=== PATIENT | female | born 1975 | race Caucasian/White ===

== ENCOUNTER 2018-02-10 16:20 | Inpatient (IN) | payer OTHER ==
[~2018-02-10] VITALS: Ht 157.5 cm; Wt 64.0 kg
[~2018-02-10 16:20] MED LIST: ATIVAN1 M1 PO; ATORVASTATIN CA10 M1 PO; DEPO-PROVE150 MG/1 M IM; EPIPEN 2-P0.3 MG/0.3 IM; LEVOTHYROXINE25 MCG PO; PROAIR HFA8.5 GM INH; VITAMIN B-121000 MC3 PO; VITAMIN D-32000 UNIT PO
[2018-02-10 16:44] LABS: ABSOLUTE BASOPHIL COUNT 0 /CUMM (0.0-0.2); ABSOLUTE EOSINOPHIL COUNT 0 /CUMM (0.0-0.7); ABSOLUTE GRANULOCYTE CT 5.1 /CUMM (1.4-6.5); ABSOLUTE LYMPH COUNT 1.8 /CUMM (1.2-3.4); ABSOLUTE MONOCYTE COUNT 0.5 /CUMM (0.10-0.60); BASOPHIL % 0.4 % (0.0-2.0); EOSINOPHIL % 0.1 % (0-5); GRANULOCYTE % 68.4 % (42.2-75.2); HEMATOCRIT 45.7 % (37-47); MEAN CORPUSCULAR HGB 29.6 PG (27.0-31.0); MEAN CORPUSCULAR HGB CONC 32.7 G/DL (33.0-37.0); MEAN CORPUSCULAR VOLUME 90.5 FL (81.0-99.0); MEAN PLATELET VOLUME 8.7 FL (7.4-10.4); PLATELET COUNT 230 /CUMM (130-400); RBC DISTRIBUTION WIDTH 13.5 % (11.5-14.5); RED BLOOD CELL CT 5.05 /CUMM (4.20-5.40); WHITE BLOOD CELL COUNT 7.5 /CUMM (4.8-10.8)
--- NOTE | 2018-02-10 16:45 | ED GENERAL ADULT ---
See Addendum History of Present Illness General Chief Complaint: Psychiatric Related Complaint Stated Complaint: BIBA +SI AND NEAR SYNCOPE/TACHYCARDIA Source: patient Exam Limitations: no limitations Vital Signs & Intake/Output Vital Signs & Intake/Output Vital Signs Date Time Temp Pulse Resp B/P B/P Pulse O2 O2 Flow FiO2 Mean Ox Delivery Rate 02/10 1754 98 Room Air 02/10 1622 99 18 155/91 98 Room Air Allergies Coded Allergies: gluten (INTOLERANCE 05/03/16) venom-honey bee (ANAPHYLAXIS 02/10/18) Reconcile Medications Albuterol Sulfate (Proair Hfa) 90 MCG HFA.AER.AD 2 PUF INH Q4-6 PRN PRN SOB Cyanocobalamin (Vitamin B-12) (Unknown Strength) TABLET (Unknown Dose) PO DAILY SUPPLEMENT (Reported) Epinephrine (Epipen 2-Cyrus) 0.3 MG/0.3 ML AUTO.INJCT 0.3 MG IM AD PRN ALLERGIC REACTION (Reported) Medroxyprogesterone Acetate (Depo-Provera) 150 MG/ML VIAL 150 MG IM Q3M ENDOMETRIOSIS (Reported) Triage Note: PT TO ER BIBA S/P SYNCOPAL EPISDOE AT HOME LASTING APPROX 4 MINS PER PT. PT STATES SHE HAS BEEN HAVING SIMILAR EPISODES STARTING WITH CHEST PAIN, SOB AND TACHYCARDIA X 3 MONTHS, HAS NOT BEEN SEEN BY MEDICAL PROVIDER FOR SAME. LAST EPISODE 2 WEEKS PRIOR. STATES NOTHING BRINGS ON EPISODES. PT IS ON PEER SECONDARY TO MAKING SI STATEMENT TO AND SISTER, PT STATES SHE SAID, "I AM DONE, I WANT TO BE WITH MY MOM". PROMPTING FAMILY TO CALL 911. PT DENIES SI/HI. DENIES ETOH/DRUG USE. PT ALERT, CALM AND COOPERATIVE. DENIES CURRENT C/P, SOB OR NAUSEA Triage Nurses Notes Reviewed? yes : No Patient currently breastfeeds: No HPI: 42-year-old female comes in for suicidal ideations. The patient was fighting with her and texted statements stating that she had thoughts of ending her life. She was cleaning her room when she had a syncopal episode. The patient reports that this is her third syncopal episode in the last 1 year. She is now being worked up for this. She denies any preceding symptoms. The patient reports that other syncopal episodes have not been related to emotional distress. She denies physical pain or discomfort. Past History Travel History Traveled to [place] past 21 day No Medical History Any Pertinent Medical History? 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 No Review of Systems Review of Systems Constitutional: Denies: chills, diaphoresis, fever. EENTM: Denies: blurred vision, double vision, visual changes. Respiratory: Denies: cough, hemoptysis, orthopnea, short of breath. Cardiovascular: Denies: chest pain, edema, orthopena. GI: Denies: abdominal pain, bloating, constipation. Musculoskeletal: Denies: back pain, gout, joint pain. Skin: Denies: cysts, change in skin color, change in hair/nails. Neurological/Psychological: Denies: anxiety, ataxia, cognitive dysfunction, confusion. Hematologic/Endocrine: Denies: bruising, bleeding, polyuria. Physical Exam Physical Exam General Appearance: well developed/nourished, no apparent distress, alert Head: atraumatic, normal appearance, active bleeding Eyes: Bilateral: PERRL, EOMI. Ears, Nose, Throat: normal pharynx, normal ENT inspection Neck: normal inspection, supple, full range of motion Respiratory: normal breath sounds, chest non-tender, no respiratory distress Cardiovascular: regular rate/rhythm, edema, gallop Gastrointestinal: normal bowel sounds, soft, non-tender Back: normal inspection, normal range of motion Neurologic/Psych: no motor/sensory deficits, awake, alert, oriented x 3, normal gait, normal mood/affect Skin: intact, normal color, warm/dry Core Measures ACS in differential dx? No CVA/TIA Diagnosis: No Sepsis Present: No Sepsis Focused Exam Completed? No Progress Differential Diagnoses . Plan of Care: Orders Procedure Date/time Status Add-on Test (ER Only) 02/10 1835 Active Add-on Test (ER Only) 02/10 1834 Active Continuous Observation Monitor 02/10 1732 Active ED CRISIS PSYCH CONSULT 02/10 1732 Active Add-on Test (ER Only) 02/10 1707 Active ACETOMINOPHEN 02/10 1631 Complete SALICYLATE 02/10 1631 Complete ETHANOL 02/10 1631 Complete D-DIMER 02/10 1631 Complete URINE 02/10 1628 Complete URINE DRUG SCREEN FOR ER ONLY 02/10 1628 Complete TROPONIN LEVEL 02/10 1628 Complete COMPREHENSIVE METABOLIC PANEL 02/10 162 Complete CBC WITHOUT DIFFERENTIAL 02/10 162 Complete EKG 02/10 162 Active Laboratory Tests 02/10/18 1651: Urine Opiates Screen < 100, Methadone Screen < 40, Barbiturate Screen < 60, Ur Phencyclidine Scrn < 6.00, Amphetamines Screen 346, U Benzodiazepines Scrn < 85, Urine Cocaine Screen < 50, Urine Cannabis Screen < 5.00 02/10/18 1650: Urine Test NEGATIVE 02/10/18 163: Anion Gap 12, Estimated GFR > 60, BUN/Creatinine Ratio 11.4, Glucose 127 H, Calcium 9.6, Total Bilirubin 0.5, AST 15, ALT 28, Alkaline Phosphatase 60, Troponin I < 0.01, Total Protein 7.0, Albumin 4.3, Globulin 2.7, Albumin/ Globulin Ratio 1.6, D-Dimer High Sensitivty < 200, CBC w Diff NO MAN DIFF REQ, RBC 5.05, MCV 90.5, MCH 29.6, MCHC 32.7 L, RDW 13.5, MPV 8.7, Gran % 68.4, Lymphocytes % 24.5, Monocytes % 6.6, Eosinophils % 0.1, Basophils % 0.4, Absolute Granulocytes 5.1, Absolute Lymphocytes 1.8, Absolute Monocytes 0.5, Absolute Eosinophils 0, Absolute Basophils 0, Salicylates < 1.0, Acetaminophen < 10.0 L, Serum Alcohol < 10.0 Initial ED EKG: see below Hand-Off Endorsed To: Janet MONTES,Niranjan Mata Comments: Sinus, rate of 92. Normal axis. Normal intervals. No acute ST-T changes. Compared to the EKG from May 03, 2016: No significant change. 1937 patient is in no distress. She is awake alert and oriented. We will do medical evaluation have crisis see the patient for the suicidal statements she made. Currently she denies being suicidal. 1849 crisis is going to hold the patient overnight. Pending labs. Plan will be signed out to the night physician. Departure Departure Time of Disposition: 1921 Disposition: STILL A PATIENT Condition: Stable Clinical Impression Primary Impression: Syncope Referrals: Mayco MONTES,Emely (PCP/Family) Meng Vicente MD Additional Instructions: Return for dizziness lightheadedness or worsening symptoms. Do not drive a car and take syncope precautions until you get cleared by her primary care doctor and aluminizer. Departure Forms: Customer Survey General Discharge Information Critical Care Note Critical Care Note Critical Care Time: non-applicable
--- NOTE | 2018-02-10 16:50 | ED PSYCHIATRIC COMPLAINT ---
History of Present Illness General Chief Complaint: Psychiatric Related Complaint Stated Complaint: BIBA +SI AND NEAR SYNCOPE/TACHYCARDIA Source: patient, police Exam Limitations: no limitations Triage Note: PT TO ER BIBA S/P SYNCOPAL EPISDOE AT HOME LASTING APPROX 4 MINS PER PT. PT STATES SHE HAS BEEN HAVING SIMILAR EPISODES STARTING WITH CHEST PAIN, SOB AND TACHYCARDIA X 3 MONTHS, HAS NOT BEEN SEEN BY MEDICAL PROVIDER FOR SAME. LAST EPISODE 2 WEEKS PRIOR. STATES NOTHING BRINGS ON EPISODES. PT IS ON PEER SECONDARY TO MAKING SI STATEMENT TO AND SISTER, PT STATES SHE SAID, "I AM DONE, I WANT TO BE WITH MY MOM". PROMPTING FAMILY TO CALL 911. PT DENIES SI/HI. DENIES ETOH/DRUG USE. PT ALERT, CALM AND COOPERATIVE. DENIES CURRENT C/P, SOB OR NAUSEA Onset: Gradual Duration: day(s): Timing: recent history : No Patient currently breastfeeds: No HPI: 42 year female presents to the Emergency Department for episodes of syncope secondary to making a suicidal statement (Nelida MONTES,[facility]) Vital Signs & Intake/Output Vital Signs & Intake/Output Vital Signs Date Time Temp Pulse Resp B/P B/P Pulse O2 O2 Flow FiO2 Mean Ox Delivery Rate 02/12 0739 98.2 80 122/74 02/11 1954 98.6 85 138/82 02/11 1507 99.2 84 131/88 02/11 1304 98.2 84 16 129/77 99 Room Air 02/11 1252 Room Air 02/11 1035 97.5 87 20 142/83 98 Room Air ED Intake and Output 02/12 0000 02/11 1200 Intake Total Output Total Balance Patient 141 lb Weight Allergies Coded Allergies: gluten (INTOLERANCE 05/03/16) venom-honey bee (ANAPHYLAXIS 02/10/18) Reconcile Medications Albuterol Sulfate (Proair Hfa) 90 MCG HFA.AER.AD 2 PUF INH Q4-6 PRN PRN SOB Cyanocobalamin (Vitamin B-12) (Unknown Strength) TABLET (Unknown Dose) PO DAILY SUPPLEMENT (Reported) Epinephrine (Epipen 2-Cyrus) 0.3 MG/0.3 ML AUTO.INJCT 0.3 MG IM AD PRN ALLERGIC REACTION (Reported) Medroxyprogesterone Acetate (Depo-Provera) 150 MG/ML VIAL 150 MG IM Q3M ENDOMETRIOSIS (Reported) Triage Nurses Notes Reviewed? 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 see below for history Family History Hx Contributory? No (Niranjan Gonzales MD) Review of Systems Review of Systems Constitutional: Denies: see HPI. (Niranjan Gonzales MD) Physical Exam Physical Exam General Appearance: SEE DR. SMALL'S EXAM Neurological/Psychiatric: PER DR. SMALL SAD PERSONS SAD PERSONS Response Value Depression/Hopelessness? yes 2 Single//? yes 1 Organized/Serious Attempt yes 2 Social Support? has no support 1 Total 6 SAD PERSONS Done? yes (Janet MONTES,Niranjan Mata) Progress Differential Diagnosis: DEPRESSION VS OTHER. Plan of Care: Orders Procedure Date/time Status Regular Diet 02/12 B Active THYROID STIMULATING HORMONE 02/12 0600 Active LIPID PANEL 02/12 0600 Active GLYCOSYLATED HGB 02/12 0600 Active Regular Diet 02/11 D Complete Patient Data - inpatient psych 02/11 1629 Active Admit to inpatient psych 02/11 1629 Active Vital Signs 02/11 1504 Active Inpt Psych Teach/Educate 02/11 1504 Active Nutritional Intake, Monitor 02/11 1504 Complete Inpt Psych Auricular Acupunctu 02/11 1504 Active Admit to inpatient psych 02/11 1144 Active ED Holding Orders 02/11 1118 Active Code Status 02/11 1118 Active Nursing Misc 02/11 UNK Active Activity/Ambulation 02/11 UNK Active Intake & Output 02/10 1934 Complete Current Medications Sig/Madelyn Start time Last Medication Dose Stop Time Status Admin Ibuprofen 400 MG Q6-PRN PRN 02/12 1000 AC (Motrin UDC) Trimethoprim/ 20 ML 0800,2000 02/11 2000 AC 02/12 Sulfamethoxazole 0820 (Bactrim Susp) Acetaminophen 320 MG Q6-PRN PRN 02/11 1645 AC (Children's Acetaminophen) Diphenhydramine HCl 25 MG Q6P PRN 02/11 164 AC (Benadryl) Haloperidol 5 MG Q6P PRN 02/11 164 CAN (Haldol) Hydroxyzine HCl 25 MG Q6PRN PRN 02/11 164 CAN (Atarax) Nicotine 2 MG Q2 HRS NEEDED PRN 02/11 164 AC (Nicotine) Olanzapine 5 MG Q6-PRN PRN 02/11 164 AC (ZYDIS (Orally disintegrating tabs)) Trazodone HCl 50 MG AT BEDTIME NEED.. 02/11 164 CAN (Desyrel) Trazodone HCl 50 MG AT BEDTIME NEED.. 02/11 164 AC (Desyrel) Potassium Chloride 20 MEQ ONCE ONE 02/11 1500 CAN (K-Dur) 02/11 1800 Laboratory Tests 02/12/18 0629: Hemoglobin A1c Pending, Triglycerides 113, Cholesterol 207 H, LDL Cholesterol, Calc 143 H, HDL Cholesterol 42, Cholesterol/HDL Ratio 5 H, TSH 4.010 02/11/18 1629: TSH Cancelled (Janet MONTES,Niranjan Mata) Departure Departure Condition: Stable Referrals: Emely Mao MD (PCP/Family) Departure Forms: Customer Survey General Discharge Information (Nelida MONTES,[facility]) Departure Disposition: STILL A PATIENT Clinical Impression Primary Impression: Depression Comments pt signed out to dr. Small, 02/11/18, 7am... crises eval in AM. (Janet MONTES,Niranjan Mata)
[2018-02-10] MEDS ORDERED: VITAMIN B-121000 MC3 PO (17:50)
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
[2018-02-11 15:07] VITALS: BP 131/88
[2018-02-11 19:54] VITALS: BP 138/82
--- NOTE | 2018-02-12 04:23 | History & Physical ---
General Information and [facility] MD Statement: I have seen and personally examined KURTIS COX and documented this H&P. The patient is a 42 year old F who presented with a patient stated chief complaint of [syncope]. Source of Information: patient Exam Limitations: no limitations History of Present Illness: This patient is a 43 y/o F PMHx Migraines and endometriosis came to the ED yesterday by ambulance after "passing out". Patient states she ran errands in the morning, had a mammogram in the afternoon, was in her normal state of health , then came home and got into a verbal argument with her boyfriend, and an argument with her sister through text message. After the argument, she went upstairs to clean her bathroom, and at around 3 pm she felt her heart race, saw spots, got cold sweats, chest pain, and passed out. She states the chest pain was mildly sharp, a 4/10 on the pain scale, and subsided after she regained consciousness. She states she was unconscious for a couple of minutes. She states that the only trigger she has noticed is after she takes a hot shower. She denies dizziness, headache, blurred vision, SOB, n/v, urinary incontinence. She reports that she has had 3 similar episodes in the past 3 months with the same symptoms, but has felt heart palpitations, numbness, and tingling in past episodes for over 7 years. Patient states each episode has been unwitnessed. Patient states she last saw her primary care physician 2 years ago and discontinued care after they did a full workup and couldnt find anything. They referred her to an brake coupler road freight, who she states also did a full work up for an autoimmune disease but did not have any results come back positive. Patient was BIBA on a police emergency evaluation request for a psych evaluation after making suicidal comments reported by her sister. During the argument with her sister, she made a statement that she is done and that she did not want to live anymore. Hospital course includes labwork showing potassium level of 3.3(L ), patient was treated with Potassium Chloride (KClor) in ED. EKG, troponins, D- dimer, utox all done in ED. Patient was at urgent care for a UTI, cx retrieved by ED. Patient starts Bactrim this evening. Patient admitted to [facility] at 4 pm this evening. Allergies/Medications Allergies: Coded Allergies: gluten (INTOLERANCE 05/03/16) venom-honey bee (ANAPHYLAXIS 02/10/18) Home Med list Albuterol Sulfate (Proair Hfa) 90 MCG HFA.AER.AD 2 PUF INH Q4-6 PRN PRN SOB Cyanocobalamin (Vitamin B-12) (Unknown Strength) TABLET (Unknown Dose) PO DAILY SUPPLEMENT (Reported) Epinephrine (Epipen 2-Cyrus) 0.3 MG/0.3 ML AUTO.INJCT 0.3 MG IM AD PRN ALLERGIC REACTION (Reported) Medroxyprogesterone Acetate (Depo-Provera) 150 MG/ML VIAL 150 MG IM Q3M ENDOMETRIOSIS (Reported) Past History Travel History Traveled to [place] past 21 day No Medical History Neurological: NONE EENT: NONE Cardiovascular: hyperlipidemia Respiratory: NONE Gastrointestinal: NONE Hepatic: NONE Renal: nephrolithiasis Musculoskeletal: NONE Psychiatric: NONE Endocrine: hypothyroidism Blood Disorders: NONE Cancer(s): NONE 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 Psychosocial History Where do you live? Home Who Do You Live With? 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 Exam & Diagnostic Data Last 24 Hrs of Vital Signs/I&O Vital Signs Date Time Temp Pulse Resp B/P B/P Pulse O2 O2 Flow FiO2 Mean Ox Delivery Rate 02/11 1954 98.6 85 138/82 02/11 1507 99.2 84 131/88 02/11 1304 98.2 84 16 129/77 99 Room Air 02/11 1252 Room Air 02/11 1035 97.5 87 20 142/83 98 Room Air 02/11 0852 98.3 74 20 124/73 99 Room Air 02/11 0633 98.6 63 16 112/58 98 Room Air 02/11 0501 Room Air Intake & Output 02/12 0800 02/12 0000 02/11 1600 Intake Total Output Total Balance Patient 141 lb Weight Physical Exam General Appearance Alert, Oriented X3, Cooperative, No Acute Distress Skin No Rashes HEENT Atraumatic, PERRLA, EOMI Neck Supple Lymphatic Axillary nl, Cervical nl Cardiovascular Regular Rate, Normal S1, Normal S2 Lungs Clear to Auscultation, Normal Air Movement Abdomen Normal Bowel Sounds, Soft, No Tenderness Neurological Normal Gait, Normal Speech Last 24 Hrs of Labs/Jose Luis: Laboratory Tests 02/11/18 1629: TSH Cancelled Assessment/Plan Assessment: Patient is a 43 year old female PMHx migraine and endometriosis BIBA on a PEER after an unwitnessed syncopal episode that occurred yesterday after getting into a verbal argument with her boyfriend and then her sister which included statements of suicidal ideation. Patient reports having 3 syncopal episodes in the past 3 months, and heart palpitations, numbness and tingling of her back and extremities for the past 7 years, with multiple workups by a PCP she no longer sees and an Arborer, Dr. Reardon, who she plans to follow up with, but reports no diagnosis after multiple work ups. This patient has prodromal symptoms including seeing spots, heart palpitations, lightheadedness, and syncope of a short duration, with no identifiable trigger. She has had outpatient treatment with no etiology of symptoms and lab work in the ED was not significant for cardiac events or dysrhythmias. Highest on my differential is that patient is having situational vasovagal syncope that is triggered by stressful situations. This patient is considered to be low risk given her negative history for structural heart disease, normal baseline EKG, and no history of injuries after these episodes. This patient can continue to be evaluated outpatient once she has completed her inpatient treatment in [facility]. Patient may continue taking Bactrim for her UTI. As Ranked By This Provider Problem List: 1. Syncope Core Measures/Misc (04/03) Acute Coronary Syndrome ACS Diagnosis: No Congestive Heart Failure Congestive Heart Failure Diagnosis No Cerebrovascular Accident CVA/TIA Diagnosis: No VTE (View Protocol) VTE Risk Factors No risk factors No Mechanical VTE Prophylaxis d/t LowRisk-No Interven Req'd No VTE Pharm Prophylaxis d/t LowRisk-No Interven Req'd Sepsis (View protocol) Sepsis Present: No If YES complete Sepsis Event Note If YES complete Sepsis Event Note Attending MD Review Statement Attending Statement Attending MD Statement: examined this patient
[2018-02-12 07:39] VITALS: BP 122/74
--- NOTE | 2018-02-12 09:50 | CPS PROVIDER INIT ASMT PSYCH ---
Psychiatric Admission Kerfer Machine Operator's Note Reviewed: Yes Patient Seen and Examined: Yes Identifying Information: young white woman Chief Complaint: I don't need to be here Reaction to Hospitalization: initially angry, now more agreeable History of Present Illness Onset of Illness: several weeks ago Circumstances Leading to Admission: sending text messages stating she was going to kill herself to and sister Problem(s) Justifying Need for Admission: suicidal threats, locking self in bedroom and not responding to family Other HPI: 42 year old woman without past psychiatric history, admitted yesterday after she was sending text messages stating she was going to kill herself and wanting to be with her mother to her after a recent breakup and her sister. She was evaluated on 02/10 with plan for re-evaluation on 02/11 with consideration for discharge. However, when precast worker and I saw her yesterday , she had been crying, hostile, unable to engage in any reasonable conversation due to insistence that she be discharged, was not interested in any outpatient referrals, discussion of events leading up to her ER hold, and not a reliable historian regarding her text messages and statements to her family. She had locked herself in her bedroom at home, and was not responsive (she states due to a syncopal episode) and family was banging on the door, concerned she was trying to kill herself, and therefore she was brought in on a peer. She has since reconstituted, appears to be more cooperative, able to have a coherent discussion, and able to discuss her stressors in a more meaningful manner. She still minimizes the breakup, isnt really processing it, and minimizing her behavior leading up to admission, but overall improving clinically. She declines need for medications, but states that she will consider outpatient therapy. She is focused on returning to work on Tuesday and returning to see her son. Past Psychiatric History Past Diagnosis(es)- if any: unspecified depressive disorder, adjustment disorder Past Precipitating Factors- if any: breakup - Include inpatient and outpatient treatment Treatment History: as a child, court mandated therapy after her parents History of Suicide Attempts or Gestures none Substance Abuse History: none, she states that there is substance use in her family and she prefers no to use any Allergies: Coded Allergies: venom-honey bee (ANAPHYLAXIS 02/10/18) Home Med List: see med rec - Include any medical condition(s) that may - impact the patient's recovery/remission Past Medical History: migraines, syncopal episodes, current UTI Past History Medical History Neurological: migraine EENT: NONE Cardiovascular: hyperlipidemia Respiratory: NONE Gastrointestinal: NONE Hepatic: NONE Renal: nephrolithiasis Musculoskeletal: NONE Psychiatric: NONE Endocrine: hypothyroidism Blood Disorders: NONE Cancer(s): NONE PROP CUTTER/Reproductive: endometriosis Isolation History: Standard Surgical History Surgical History: none Psychiatric Family/Social Hx Family History Psychiatric Illness: brother - bipolar disorder, ptsd, substance use Substance Use: brother with significant substance use Suicides: none however sister had noted that their mother and grandmother both had hx of suicide attempts Social History Living Situation: lives with her 17 year old son, moved out less than a month ago Significant Relationships (family/friends): just left less than a month ago Education: high school, has certificate in business billing Vocation/Occupation: works for [employer] Legal: none Healthly Behaviors Screening Tobacco Screening Tobacco Use from ED Docu: Quit >30 days ago - If tobacco counseling indicated - the following topics are required. - #1 Recognizing dangerous situations. - #2 Coping Skills. - #3 Basic information about quitting. Status of Tobacco Cessation Counseling: #1, #2 AND #3 Completed (vaping only ) Cessation Med Status Pt Refused Cessation Meds Alcohol Screening - ETOH screen POS if BAL >=80 or Audit-C>= M4/F3 Audit-C Score from Diag Assess: 0 Blood Alcohol Level: Laboratory Tests 02/10 1631 Toxicology Serum Alcohol (<10 MG/DL) < 10.0 Alcohol Use Screening Results: Neg per Audit C &/or BAL - If ETOH counseling indicated - the following topics are required. - #1 Express concern about the patient's - drinking at unhealthy levels, include informing - of national norms for moderate drinking: - men <= 14 drinks/week, max 4 drinks/occasion - women <= 7 drinks/week, max 3 drinks/occasion - #2 Providing feedback, including linking alcohol to - negative physical effects (liver injury, hypertension) - negative emotional effects (relationship problems and - depression) - negative occupational consequences (reduced work - performance) - #3 Advising the patient to abstain from alcohol or - to drink below national norms for moderate drinking - (as listed above). Status of ETOH Use Counseling: N/A B/C NO ETOH Use Metabolic Screening - Screen if on a Neuroleptic Medication - Metabolic screening should include: - Blood Pressure, BMI, Glucose or Hgb A1c, & a - Lipid profile from within the past 365 days. Metabolic Screening () Not Applicable, patient not on a neuroleptic. OR () Patient on a neuroleptic(s) . Enter below results for Hemoglobin A1C, and lipid panel if obtained during the last 365 days. BMI: Blood Pressure: 122/74 Laboratory Results From [facility] (If applicable): Exam and Plan Mental Status Examination Ambulation Status: normal Appearance: well groomed Attitude towards examiner: initially hostile then more cooperative Psychomotor activity: normal Behavior: normal Quality of speech: normal Affect: full Mood: neutral Suicidal Ideation: none, denied Homicidal Ideation: denies Hallucinations: none Paranoid/Delusional Material: none Difficulties with thought organization: none Insight: fair Judgment: poor leading up to admission, improving overall Orientation: x3 Cognition: intact grossly Memory Function: intact Estimate of intellectual functioning: average Assets/Strengths Patient Identified Assets/Strengths: family support, work, has home, no significant mental health history and no suicide attempt history Impression/Plan Impression and Plan: 42 year old woman without past psychiatric history, admitted yesterday after she was sending text messages stating she was going to kill herself and wanting to be with her mother to her after a recent breakup and her sister. She was evaluated on 02/10 with plan for re-evaluation on 02/11 with consideration for discharge. However, when precast worker and I saw her yesterday , she had been crying, hostile, unable to engage in any reasonable conversation due to insistence that she be discharged, was not interested in any outpatient referrals, discussion of events leading up to her ER hold, and not a reliable historian regarding her text messages and statements to her family. She had locked herself in her bedroom at home, and was not responsive (she states due to a syncopal episode) and family was banging on the door, concerned she was trying to kill herself, and therefore she was brought in on a peer. She has since reconstituted, appears to be more cooperative, able to have a coherent discussion, and able to discuss her stressors in a more meaningful manner. She still minimizes the breakup, isnt really processing it, and minimizing her behavior leading up to admission, but overall improving clinically. She declines need for medications, but states that she will consider outpatient therapy. She is focused on returning to work on Tuesday and returning to see her son. Plan: Continue milieu therapy, engagement, meet with primary team Tuesday. She appears to be stabilizing sufficiently, such that if her mental status remains stable within next day or days she can likely be changed to voluntary and planned for discharge with outpatient referral. Initially there was plan for cardio consult due to syncopal episode, Dr. Nguyen had seen her and noted low suspicion for cardiac event and more likely vasovagal episode and did not mention any cardiology consult. I spoke with global analytics head dehydrogenation converter helper who noted that could refer to cardiology as outpatient. - Include all active medical diagnosis that require tx DSM 5 Diagnosis(es): unspecified depressive disorder vs adjustment disorder - Initial Tx Plan for Active Psych & Medical Conditions Treatment Plan: see above, milieu, groups, referral to outpatient therapist when stabilized - Factors that would help patient function - in a less restrictive setting. Factors: She had alarming risk factors recent breakup, no insight regarding seriousness of her text messages and locking self in her room, unable to have a rational discussion initially, and family history of suicide attempts and bipolar disorder, and overall minimizing of recent stressors, which merited further evaluation and admission. However, as she stabilizes clinically from the acute event, her protective factors stable work, family support, no history of drug or alcohol use or suicide attempts, lower her acute risk of harm to self/others.
--- NOTE | 2018-02-12 13:53 | SOCIAL WORKER SOCIAL HX PSYCH ---
See Addendum Social History Basic Assessment Insurance Authorization: Insurance #1: Insurance name: BENITO LOZA Phone number: Policy number: [id number] Group number: [id number] Authorization number: Curr Source of Income/Entitlements: employment Primary Care Physician: Patient's PCP: Emely Mao MD PCP's Primary Language? Japanese Language(s) Spoken At Home: Japanese Living Situation Rents or Owns Home? owns Residential Care/Treatment Fac n/a Feel Safe Where You Are Living Yes Feel Safe in Relationships? Yes Comments: n/a Allergies - Coded Allergies: venom-honey bee (ANAPHYLAXIS 02/10/18) Current Medications - Scheduled Medications Cyanocobalamin (Vitamin B-12) (Unknown Strength) TABLET (Unknown Dose) PO DAILY SUPPLEMENT (Reported) Entered as Reported by Ambar Abernathy on 02/10/18 175 Medroxyprogesterone Acetate (Depo-Provera) 150 MG/ML VIAL 150 MG IM Q3M ENDOMETRIOSIS #1 VIAL (Reported) Entered as Reported by Ambar Abernathy on 05/03/16 175 Last Taken: 02/02/18 Scheduled PRN Medications Albuterol Sulfate (Proair Hfa) 90 MCG HFA.AER.AD 2 PUF INH Q4-6 PRN PRN SOB #1 INHAL Prescribed by Daisy Johnson on 05/03/16 Last Taken: At an unknown date and time Epinephrine (Epipen 2-Cyrus) 0.3 MG/0.3 ML AUTO.INJCT 0.3 MG IM AD PRN ALLERGIC REACTION #2 (Reported) Entered as Reported by Ambar Abernathy on 05/03/16 175 Consequences of Psych Med Use: n/a Comments: Pt. is not on psych meds. 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 Pt. has one biological brother who is 2 years younger than pt. At age 4, pt's parents . Pt. lived with father first and then maternal grandparents. Pt's mother re- and pt. has a step-father and a half-sister 10 years younger. Primary Childhood Caretakers: father, grandparent(s) Family Life During Childhood: "It wasn't awful." DCF Involvement? No Mother's Age (Current/): 56 ( at 56yo) Relationship w/Mother: good Father's Age (Current/): 62 (current) Relationship w/Father: good Any Sibling(s)? Yes Sibling's Gender(s)/Age(s): male Sibling 1: (40) Relationship w/Sibling(s): good Relationship w/Friends: good Family Psych/Sub Abuse/Add Hx: drug of choice, diagnosis, Brother - alcohol, Bipolar D/O, PTSD. Maternal side of the family - alcohol Number of Pregnancies: 2 Number of Miscarriages: 0 Number of Abortions: 0 Other Comments: n/a Abuse/Trauma History Trauma History/Current Trauma: Denies Victim or Perpretator? victim (n/a) History of Trauma/Abuse Treatment? No Abuse/Trauma Treatment: n/a Legal History Legal Guardian/Address/Phone: n/a Current Legal Status: none Pending Court Dates: none Have you ever been arrested No Number of Arrests: 0 Hx of Juvenile Legal Charges? No Hx of Adult Legal Charges? No Civil Proceedings: none Domestic Relations Court: none Child Protective Serv Involvmnt none Biological Science Aide n/a Psychosocial History Primary Support System: , father, sibling(s), friend, step-father Strengths/Capabilities: Patient is employed. Patient has familial support from her sister, step-father and father. Weaknesses: impulsivity Physical Limitations (Interventions): None assessed Last Physical: 2 years ago History of Seizures? No History of Blackouts? Yes (passing out) Last Blackout: a few days ago ADL Limitations: none [place]/Social/Peer Relations yes, Pt. has friends Meaningful Activities: Yoga Childhood Church: no presybeterian stated Current Baptist Affiliation: Jehovah'S Witness Is Spirituality Important to You? "not really" Patient's Ethnicity: Scottish, Renée Cultural/Ethnic Issues: NONE Are There Developmental Issues? No (took speech in school) Milestones Achieved: fine motor, gross motor Psychiatric Treatment History Psych Treatment Inpatient Treatment No Outpatient Treatment No Precipitating Factors: n/a Current Machine Ii Trimmer: none Treatment of Prior Episodes: none Diagnosis: No known past psychiatric diagnoses. Psychodynamic Issues: marital conflict Risk Factors: high anxiety/distress, poor impulse control, limited support Substance Use/Abuse History Drug Use/Abuse:Min 12 mo hx Substance Used/Abused No History Explain: n/a - pt. does not use substances. Explain: n/a Have You Ever Attended ? No Other Community Resources Used: none Symptoms of Use: n/a Substance Abuse Treatment Substance Abuse Treatment Inpatient Treatment No Outpatient Treatment No Comments: n/a Sexual History Sexually Active Yes # of partners 1 Sexual Orientation Heterosexual Sexual Concerns: none Education History Highest Level of Education: high school/GED, business school certificate Highest Grade Completed: 12th Vocational Year Completed: Business school Number of College Years: 0 College Degree/Major: n/a Preferred Learning Style: visual, auditory, experiential HX of Learning Difficulties: None reported Barriers to Learning: None reported Special Communication Needs: None reported Employment History Employment Employed Not in Labor Force: n/a 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 of Jobs in Last 5 Years: 1 Attendance: Normal Performance: Good Comments: none History Have You Been in The ? No If Yes, Explain: n/a Type of Discharge: General (n/a) Date of Discharge: n/a Current Mental Status Mental Status Orientation: Person, Place, Situation Affect: Appropriate Speech: WNL Neuro-vegetative: Appetite Decreased Appearance Appearance- Dress/Hygiene: Patient dressed in hospital attire with no remarkable features observed. Behaviors Thought Process: WNL Thought Content: WNL Memory: WNL Insight: Poor SI/HI Risk Assessment Past Suicidal Ideation/Attempts No (but made threats) Current Suicidal Ideation/Att No (Pt. denies) Past Homicidal Ideation/Att: No Current Homicidal Ideation/Attempts No (Patient denies) Degree of Intent: None Danger To: none Gravely Disabled: none Risk Factors: SA/MH Hospitalization(s), Poor impulse control Lethality Ratin (mild) - Conclusion and Recommendations for treatment - and discharge planning Summary: Pt. reported that her mood was "fine" today and that she had no current suicidal thoughts. Her affect appeared mostly euthymic, she was alert and oriented and demonstarted a logical thought process. Pt. says that she made the suicidal statement to her sister out of anger and regrets it. Pt. said that she has no psychiatric history and does not want to take any psychiatric medications. Pt. said that she hopes to be discharged soon and that her "comes back home ". Pt's insight into her impulsive behavior prior to admission still appears to be limited.
[2018-02-12 19:49] VITALS: BP 142/83
[2018-02-13 07:49] VITALS: BP 124/65
--- NOTE | 2018-02-13 14:22 | SOCIAL WORKER PROG NOTE PSYCH ---
Social Work Progress Note Progress Note Alejandra stated she was here due to a "misunderstanding." Stated she was feeling angry/ upset with her sister and texted her about going to be with her Mother ( who is ). She said she was not intending on killing herself and only stated this to get her sister to leave her alone. I explored what the content of the discussion was? She said that her Sister was saying negative comments about her , which caused her to feel like she didn't understand what she was going through. Her and her are recently seperated after 29 years of marriage. She said she was then in her room and had passed out in the bathroom. She reports having a current medical condition for which she has passed out a couple of times prior. She said it has happened 3x's and it's usually when she is hot. She said she needs to see a tabular typist to explore the issue. She gets a racing heart and tingling/ numbness in her hands. I asked if this is increasing her anxiety/ stress? She said no. Apparently while passed out, her son (17) was trying to get in her room and had been told by her Sister that she was going to kill herself. Police were called and she was brought to the ER. She was angry about all of this and stated she was not cooperative with the doctor and that's why she's now on the psych unit. She denies any SI/HI. Denies hx of attempts. She is not in outpatient tx and hasn't been since childhood. She is not on any medications, nor feels she needs any. 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 She wouldn't be able to participate in an IOP. Asked if she would be interested in individual therapy? She said maybe, but didn't think it was really necessary. She is open to having a family meeting with her Sister Isabela [phone]. Explored a bit more about her and her's seperation. She stated that he was choosing to leave the marriage after 29 years. She stated she was surprised by this, but stated in the last 5 years they have felt disconnected as and . Asked if she could benefit from therapy due to the increase stress and feelings surrounding the seperation? She said she was utilizing a service online called "[employer]." She said it is focusing on her right now and her feelings. She seemed to think it was helpful. She is hopeful that her and her can work on things. She would like to keep the marriage intact. During our meeting affect was appropriate she smiled occasionally. She was a bit guarded I felt about her emotions surrounding the seperation. Cooperative. Told her d/c would most likely happen tomorrow. She doesn't feel she needs to be here. Called Isabela (sister). Isabela advocated for her discharge. She doesn't feel she is suicidal. She will participate in a phone conference at 10:30am tomorrow. Asked Alejandra if she wanted her at the meeting? She said that was fine. Spoke with Alejandra's . He didn't feel the need to be at the meeting. He feels the need to draw a line at this point in his involvement. He seems focused on seperating himself from her and feels that Alejandra is in denial about what is going on. He has no safety concerns.
--- NOTE | 2018-02-13 17:15 | CP SOUTH PROGRESS NOTE PSYCH ---
Psych (Inpt) Progress Note Progress Note Include the following elements, when applicable: Involvement in the active treatment of the patient with behavioral observations of the patient and the patient's response to the treatment. Review of the ongoing treatment process in the context of the treatment plan. Indication of how multi-disciplinary staff members are carrying out the treatment plan. Plans for future interventions and recommendations for revision of the treatment plan. Liaison with other physicians/providers. Progress Note: Dr. Jones's note reviewed. Case and treatment plan discussed in team meeting. Staff reports that the patient is denying suicidal ideation. She appeared tearful. Otherwise appearing calm and appropriate. Focused on returning to work. Patient seen at 12 noon. She was in group prior to meeting meet with me in office. She is a 43-year-old white female. Reports she was in a fight with her sister. States sister was just being annoying. Patient wanted sister to be more supportive. Allegedly sister told patient to get rid of her , telling the patient that she does not need them. Patient claims that to stop her sister, she texted sister that she wanted to be with their () mother. Patient's sister tried to call the patient and patient did not respond. Patient states that she had passed out. Patient believes she was only out for a couple of minutes and when she woke up, she answered her sister. Past psychiatric history: None. Denies history of suicide attempts or self-harm. Substance abuse history: Denies use of drugs or alcohol. Medications: Denied. Allergies: No known allergies. Past medical history: Three episodes of passing out. Reports she has had an endocrinology workup. She was thought to be hypothyroid but has been off her levothyroxine since June or July as her PCP cut her off. She had been on it for 7 years. Patient reports she is being worked up by feed crusher operator for a possible autoimmune condition. Family psychiatric and substance use history: Patient's 40-year-old brother has bipolar disorder, PTSD and ADHD and lives on the streets. There is alcoholism on maternal grandfather's side. No suicides in the family. Social history: Father lives with stepmother in [place]. Mother 6 years ago at age 56 from colon cancer. Patient lives with her 2 children, son, age 17 and daughter, age 22. Patient has been for 18 years. moved out 2 weeks ago and patient does not know why he moved out. Patient is a high school graduate and attended business school. 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 No history of arrests. Patient reports she feels well. Affect is calm and euthymic. Mood is good. Rates sad mood 2/10 and anxiety 0/10. Denies feeling hopeless, helpless, worthless or guilty. Denies active and passive suicidal ideation. Denies homicidal ideation. Denies auditory and visual hallucinations. Denies paranoid ideation and magical hernandez. Insight is fair. Judgment was poor. There is no apparent thought disorder or delusions. The patient is oriented 3. Cognition is grossly intact. Reports sleep is good and appetite is fine. Energy is good. Patient is not interested in psychiatric medication and denies depression. IMPRESSION: Slow progress. Continue present treatment plan. Additional information is needed from collaterals. Family meeting is planned for tomorrow at 10:30 AM. Anticipate likely discharge tomorrow with referral to OPS.
[2018-02-13 19:25] VITALS: BP 126/67
[2018-02-14 08:08] VITALS: BP 116/77
--- NOTE | 2018-02-14 10:32 | SOCIAL WORKER PROG NOTE PSYCH ---
Social Work Progress Note Progress Note Received a voicemail from Mr. Nickerson that he wanted to bring his daughter (22) to the meeting and come for 10:30am. Talked to Alejandra about this and she didn't want to have her daughter there. I suggested she speak with her about this. She said she would call. At 10:30a Mr. Nickerson showed up for the family meeting with her daughter. Alejandra still was in disagreement about having her there. Her daughter was tearful and expressed her desire to be at the meeting. I suggested we split the time, which was agreed upon. Dr. Gan was also in attendance at the beginning of the meeting and we conferenced called in her Sister Isabela. Isabela stated that she feels her Sister is overwhelmed and stressed and said what she did through texts out of emotion, but not intent. She doesn't have any safety concerns and feels she is safe. Denied any past hx of self-harm. Her daughter was quite tearful at the meeting. She expressed how difficult it was for her to see her parents get . She wants to support her Mother. She doesn't have any safety concerns. Mr. Nickerson indicated that there is no goal at this point for marriage counseling. He doesn't feel she needs to be here and was an advocate of her being discharged today. Talked about the importance of following up with an outpatient therapist. She was agreeable. Shared a list of providers in the area. She wanted a referral to [facility]. She mentioned possibly having family therapy with her daughter. Empathized with the difficult process of divorce and that everyone in the family is processing that differently and would benefit from additional support right now. Called [facility] and provided some clinical and demographic and insurance info. I was told that they will check her insurance and then assign the case to a therapist. They will reach out to her at home in the next 24-48 hours. I asked for a call back as well to ensure the appt. is secured. Informed Alejandra of this information. Left with family.
--- NOTE | 2018-02-14 10:52 | Patient Discharge Instructions ---
Psych Discharge Inst General Discharge Information Reason for Admission: Sent concerning text to sister, suggestive of possible suicidal ideation. a few weeks ago. Psy Discharge Primary Diag+ Unspecified depression Psy Discharge Secondary Diag+ Treated UTI Syncope Summary Tests/Major Procedures Lab ALT 28 U/L 02/10/18 1631 AST 15 U/L 02/10/18 1631 Anion Gap 13 02/14/18 0615 BUN 8 mg/dL 02/10/18 1631 Calcium 9.6 mg/dL 02/10/18 1631 Carbon Dioxide 23 mmol/L 02/14/18 0615 Chloride 108 mmol/L H 02/10/18 1631 Chloride 106 mmol/L 02/14/18 0615 Cholesterol 207 MG/DL H 02/12/18 0629 Cholesterol/HDL Ratio 5 % H 02/12/18 0629 Creatinine 0.7 mg/dL 02/10/18 1631 Estimated GFR > 60 ml/min 02/10/18 1631 Glucose 127 mg/dL H 02/10/18 1631 HDL Cholesterol 42 mg/dL 02/12/18 0629 Hemoglobin A1c 5.4 % 02/12/18 0629 LDL Cholesterol, Calc 143 mg/dL H 02/12/18 0629 Magnesium 2.2 mg/dL 02/14/18 0615 Phosphorus 3.8 mg/dL 02/14/18 0615 Potassium 3.3 mmol/L L 02/10/18 1631 Potassium 3.9 mmol/L 02/14/18 0615 Sodium 143 mmol/L 02/10/18 1631 Sodium 142 mmol/L 02/14/18 0615 TSH 4.010 uIU/mL 02/12/18 0629 Triglycerides 113 mg/dL 02/12/18 0629 D-Dimer High Sensitivty < 200 ng/ml 02/10/18 1631 Hct 45.7 % 02/10/18 1631 Hgb 15.0 G/DL 02/10/18 1631 MCHC 32.7 G/DL L 02/10/18 1631 WBC 7.5 /CUMM 02/10/18 1631 Serum Alcohol < 10.0 MG/DL 02/10/18 1631 Urine Test NEGATIVE 02/10/18 1650 EKG 02/10/18 showed sinus rhythm @ 92, probable left atrial abnormality, no significant change since previous tracing, borderline EKG, QT 368, QTc 456. Studies Pending at DC: None. Patient Instructions Contact Information Your Psychiatrist on [facility] was Niranjan Gan MD * If you are experiencing an emergency related to this hospitalization, please call [phone] to contact the treating psychiatrist or the psychiatrist-on- call. * To Request a copy of your medical records, please contact the Medical Records Department at [phone]. * To request results of studies pending at the time of discharge, please call [phone]. * Continue your Medications until directed to stop by your Healthcare provider. General Medication Information Please continue to take your new medications and your continued home medications , unless otherwise indicated on your discharge medication list, or unless directed by your MD or LEATHER STAKER to stop them. Special Instructions Diet Regular Activity Normal Other Inst/Recommendations See PCP about syncope (fainting), to review EKG and labs. - Tobacco Use Treatment Offered Post DC Medications Offered: Refused Tob Medication Tx Post DC Tobacco Treatment Plan: [facility] Program Appt Date: 02/22/18 Program Appt Time: 1600 - EtOH/Drug Use D/O Treatment Offered Post DC Medications Offered: NA-No EtOH/Drug Use D/O Post DC EtOH/SubAbuse [place] Plan: NA-No EtOH/Drug Use D/O Metabolic Screening ([x]) Not Applicable, patient not on a neuroleptic. OR () Patient on a neuroleptic(s) . Enter below results for Hemoglobin A1C, and lipid panel if obtained during the last 365 days. BMI: Blood Pressure: 116/77 Laboratory Results From [facility] (If applicable): Advance Directives Does the Patient have Medical Advance Directives No/Refused further info Does Pt have Psychiatric Advance Directives? No/Refused further info Does Patient have a Designated Surrogate Decision Maker: No Information About Psychiatric Advance Directives Provided? Refused Discharge Plan Post Hospital Treatment Plan: Returning to home and daughter. Being referred [facility].
--- NOTE | 2018-02-14 13:47 | CP SOUTH PROGRESS NOTE PSYCH ---
Psych (Inpt) Progress Note Progress Note Include the following elements, when applicable: Involvement in the active treatment of the patient with behavioral observations of the patient and the patient's response to the treatment. Review of the ongoing treatment process in the context of the treatment plan. Indication of how multi-disciplinary staff members are carrying out the treatment plan. Plans for future interventions and recommendations for revision of the treatment plan. Liaison with other physicians/providers. Progress Note: Case and treatment plan discussed in team meeting. Staff reports that the patient is denying suicidal ideation. She was present and involved in wrap-up group. Showing a positive mood. Looking forward to discharge. Patient seen at 10:27 AM with JOSE JUAN cook. Patient was in group prior to meeting with us in office. She told us that she is here because she made a "stupid comment to my sister" by text. Feels fine. Affect is calm, euthymic and superficial. Has no complaints. Anticipating family meeting with and with sister by phone. Reports sister is being supportive now. Mood is happy. Rates sad mood 0/10 right now. Rates anxiety 0/10. Denies feeling hopeless, helpless, worthless or guilty. Denies active and passive suicidal ideation. Denies homicidal ideation. Denies auditory and visual hallucinations and paranoid ideation. Reports sleep is good and appetite is normal. Energy is same, normal. Denies having urinary tract infection symptoms now. Feels ready and safe for discharge. Patient completed a 3-day course of Bactrim suspension. She was advised to follow-up with PCP about treated urinary tract infection. Patient denies having access to guns. I attended family meeting with patient, , daughter, sister (who participated by phone), licensed master social worker, and PA student. Patient's and family's questions were addressed. IMPRESSION: Condition improved. Okay for discharge today to home and daughter. Patient apparently is not interested in IOP because of her work schedule. She is not interested in psychiatric medication. Patient will pursue outpatient treatment at [facility].
--- NOTE | 2018-02-14 13:52 | DISCHARGE SUMMARY REPORT-PSYCH ---
Visit Information Visit Dates/Diagnosis' Admission Date: 02/11/18 Discharge Date: 02/14/18 Reason for Admission: Sent concerning text to sister, suggestive of possible suicidal ideation. a few weeks ago. Psy Discharge Primary Diag: Unspecified depression Psy Discharge Secondary Diag: Treated UTI Syncope Hospital Course Significant Lab Findings: Lab ALT 28 U/L 02/10/18 1631 AST 15 U/L 02/10/18 1631 Anion Gap 13 02/14/18 0615 BUN 8 mg/dL 02/10/18 1631 Calcium 9.6 mg/dL 02/10/18 1631 Carbon Dioxide 23 mmol/L 02/14/18 0615 Chloride 108 mmol/L H 02/10/18 1631 Chloride 106 mmol/L 02/14/18 0615 Cholesterol 207 MG/DL H 02/12/18 0629 Cholesterol/HDL Ratio 5 % H 02/12/18 0629 Creatinine 0.7 mg/dL 02/10/18 1631 Estimated GFR > 60 ml/min 02/10/18 1631 Glucose 127 mg/dL H 02/10/18 1631 HDL Cholesterol 42 mg/dL 02/12/18 0629 Hemoglobin A1c 5.4 % 02/12/18 0629 LDL Cholesterol, Calc 143 mg/dL H 02/12/18 0629 Magnesium 2.2 mg/dL 02/14/18 0615 Phosphorus 3.8 mg/dL 02/14/18 0615 Potassium 3.3 mmol/L L 02/10/18 1631 Potassium 3.9 mmol/L 02/14/18 0615 Sodium 143 mmol/L 02/10/18 1631 Sodium 142 mmol/L 02/14/18 0615 TSH 4.010 uIU/mL 02/12/18 0629 Triglycerides 113 mg/dL 02/12/18 0629 D-Dimer High Sensitivty < 200 ng/ml 02/10/18 1631 Hct 45.7 % 02/10/18 1631 Hgb 15.0 G/DL 02/10/18 1631 MCHC 32.7 G/DL L 02/10/18 1631 WBC 7.5 /CUMM 02/10/18 1631 Serum Alcohol < 10.0 MG/DL 02/10/18 1631 Urine Test NEGATIVE 02/10/18 1650 EKG 02/10/18 showed sinus rhythm @ 92, probable left atrial abnormality, no significant change since previous tracing, borderline EKG, QT 368, QTc 456. Course Complications: None. Consultations: Patient was seen by Dr. Vince Merlos for admission H&P. Per his note of 02/12/18: "Assessment: Patient is a 43 year old female PMHx migraine and endometriosis BIBA on a PEER after an unwitnessed syncopal episode that occurred yesterday after getting into a verbal argument with her boyfriend and then her sister which included statements of suicidal ideation. Patient reports having 3 syncopal episodes in the past 3 months, and heart palpitations, numbness and tingling of her back and extremities for the past 7 years, with multiple workups by a PCP she no longer sees and an Center Rep, Dr. Reardon, who she plans to follow up with, but reports no diagnosis after multiple work ups. This patient has prodromal symptoms including seeing spots, heart palpitations, lightheadedness, and syncope of a short duration, with no identifiable trigger. She has had outpatient treatment with no etiology of symptoms and lab work in the ED was not significant for cardiac events or dysrhythmias. Highest on my differential is that patient is having situational vasovagal syncope that is triggered by stressful situations. This patient is considered to be low risk given her negative history for structural heart disease, normal baseline EKG, and no history of injuries after these episodes. This patient can continue to be evaluated outpatient once she has completed her inpatient treatment in [facility]. Patient may continue taking Bactrim for her UTI." Allergies: Coded Allergies: venom-honey bee (ANAPHYLAXIS 02/10/18) Hospital Course/TX Response: The patient was monitored on the unit for safety and mood disorder. She participated in multi-modal treatments on the unit. There were no syncopal episodes on the unit. The patient was not interested in psychiatric medication. Progress note from date of discharge, 02/14/18: "Case and treatment plan discussed in team meeting. Staff reports that the patient is denying suicidal ideation. She was present and involved in wrap-up group. Showing a positive mood. Looking forward to discharge. Patient seen at 10:27 AM with PA student. Patient was in group prior to meeting with us in office. She told us that she is here because she made a "stupid comment to my sister" by text. Feels fine. Affect is calm, euthymic and superficial. Has no complaints. Anticipating family meeting with and with sister by phone. Reports sister is being supportive now. Mood is happy. Rates sad mood 0/10 right now. Rates anxiety 0/10. Denies feeling hopeless, helpless, worthless or guilty. Denies active and passive suicidal ideation. Denies homicidal ideation. Denies auditory and visual hallucinations and paranoid ideation. Reports sleep is good and appetite is normal. Energy is same, normal. Denies having urinary tract infection symptoms now. Feels ready and safe for discharge. Patient completed a 3-day course of Bactrim suspension. She was advised to follow-up with PCP about treated urinary tract infection. Patient denies having access to guns. I attended family meeting with patient, , daughter, sister (who participated by phone), social media sr strategy manager, and PA student. Patient's and family's questions were addressed. IMPRESSION: Condition improved. Okay for discharge today to home and daughter. Patient apparently is not interested in IOP because of her work schedule. She is not interested in psychiatric medication. Patient will pursue outpatient treatment at [facility]." Discharge HBIPS - Tobacco Use Treatment Offered Post DC Medications Offered: Refused Tob Medication Tx Post DC Tobacco Treatment Plan: [facility] Program Appt Date: 02/22/18 Program Appt Time: 1600 - EtOH/Drug Use D/O Treatment Offered Post DC Medications Offered: NA-No EtOH/Drug Use D/O Post DC EtOH/SubAbuse TX Plan: NA-No EtOH/Drug Use D/O Metabolic Screening - Screen if on a Neuroleptic Medication - Metabolic screening should include: - Blood Pressure, BMI, Glucose or Hgb A1c, & a - Lipid profile from within the past 365 days. Metabolic Screening ([x]) Not Applicable, patient not on a neuroleptic. OR () Patient on a neuroleptic(s) . Enter below results for Hemoglobin A1C, and lipid panel if obtained during the last 365 days. BMI: Blood Pressure: 116/77 Laboratory Results From [facility] (If applicable): Discharge Instructions General Discharge Information Multiple Neuroleptics: ([x]) Not Applicable OR Document below three failed attempts at monotherapy, or a plan to taper to monotherapy, or augmentation of Clozapine. () Discharge Diet Regular Discharge Activity Normal DC Disposition: Returning to home and children. Referrals Ordered Referrals Provider Referral For Groups: [[facility]] Patient referred to [facility] [address] [place] [address]. [place] [address] [place], [place] [phone] Staff will reach out within 24-48 hours with therapist's name and intake appt. Prescriptions Continue taking these medications: Medroxyprogesterone Acetate (Depo-Provera) 150 MG/ML VIAL 150 Milligram INTRAMUSC Every 3 months Qty = 1 Comments: Last Taken:NOT TAKEN IN HOSPITAL Time: Epinephrine (Epipen 2-Cyrus) 0.3 MG/0.3 ML AUTO.INJCT 0.3 Milligram INTRAMUSC As Directed as needed for ALLERGIC REACTION Qty = 2 Comments: Last Taken:NOT TAKEN IN HOSPITAL Time: Albuterol Sulfate (Proair Hfa) 90 MCG HFA.AER.AD 2 Puff Inhale through mouth EVERY 4-6 HOURS NEEDED as needed for SOB Qty = 1 Comments: Last Taken:NOT TAKEN IN HOSPITAL Time: Cyanocobalamin (Vitamin B-12) (Unknown Strength) TABLET Unknown Dose ORAL DAILY Comments: Last Taken:NOT TAKEN IN HOSPITAL Time: Other Inst/Recommendations See PCP about syncope (fainting), to review EKG and labs. Needs F/U UTI. Studies Pending at Discharge None. Copies To: [facility]
== END 2018-02-14 11:38 | DRG 881 ==
LOC: ERH 16:20 → CP SOUTH 02-11 11:18 → ERHI 02-11 11:18 → ENTRNSPT 02-11 14:45 → EDTRNSPTSTS 02-11 14:47 → CP SOUTH 02-11 15:00 → CMPTRNSPT 02-11 15:01 → CP SOUTH 02-13 09:56
PROVIDERS: Emergency Medicine; Psychiatry & Neurology Psychiatry
DX: F32.9 Major depressive disorder, single episode, unspecified (principal); N39.0 Urinary tract infection, site not specified; R55 Syncope and collapse
CPT/HCPCS: 36415; 80307; 81025; 93005; 93010; G0463; G0480